=== PATIENT | female | born 1945 ===

== ENCOUNTER → 2020-07-26 | Outpatient (REF) | payer MEDICARE, MEDICAID ==
[2020-07-26 14:05] LABS: CRYSTALS, BODY FLUID CA PYROPHOSPHATE (NONE SEEN); SOURCE, BODY FLUID CRYSTALS RT KNEE
[2020-07-26 14:36] LABS: SOURCE, BODY FLUID GLUCOSE RT KNEE
[2020-07-26 15:24] LABS: SOURCE, BODY FLUID RT KNEE
[2020-07-26 15:25] LABS: SYNOVIAL FLUID COLOR YELLOW (YELLOW)
[2020-07-27 10:51] LABS: BODY FLUID RHEUMATOID SCREEN NEGATIVE (NEGATIVE)
[2020-07-27 10:53] LABS: MUCIN CLOT TEST 4+ (4+)
== END ==
LOC: M LAB REF 13:23
PROVIDERS: ATTEND Orthopaedic Surgery
DX: M25.461 Effusion, right knee (principal)